=== PATIENT | male | born 1980 | race Caucasian/White ===

== ENCOUNTER 2020-02-22 09:07 | Inpatient (IN) | payer OTHER ==
[~2020-02-22] VITALS: Ht 177.8 cm; Wt 97.5 kg
[2020-02-22 09:21] VITALS: Ht 177.8 cm; Wt 97.5 kg
[2020-02-22 10:06] LABS: CALCIUM 9.3 mg/dL (8.5-10.1); CARBON DIOXIDE 26.9 mmol/L (21-32); CREATININE SERUM 1.4 mg/dL (0.7-1.3); POTASSIUM SERUM 4.1 mmol/L (3.5-5.1)
[2020-02-22 10:11] LABS: ALBUMIN 4.5 g/dL (3.4-5.0); BILIRUBIN TOTAL 0.7 mg/dL (0.20-1.00); TOTAL PROTEIN, SERUM 7.9 g/dL (6.4-8.2)
[2020-02-22 10:19] LABS: PLATELET COUNT 257 x10^3mcL (130-400); RED CELL DISTRIBUTION WIDTH 12.9 % (11.5-14.5)
[2020-02-22 10:22] LABS: BASOPHIL % 0 % (0-2)
[2020-02-22 12:02] LABS: microscopic required? YES; urine erythrocyte 1+ (NEGATIVE)
[2020-02-22 16:23] VITALS: BP 139/96
[2020-02-22 17:17] LABS: MAGNESIUM 1.8 mg/dL (1.8-2.4); PHOSPHOROUS 2.4 mg/dL (2.5-4.9)
[2020-02-22 17:18] LABS: CHOLESTEROL/HDL RATIO 5.5
[2020-02-22 17:23] LABS: T3 TOTAL 1.25 ng/mL
[2020-02-22 17:27] LABS: FREE T4 0.96 ng/dL (0.76-1.46); FREE THYROXINE INDEX 2.5 ug/dL (1.4-4.5); T4(THYROXINE) 7.4 ug/dL (4.7-13.3)
[2020-02-22 19:58] VITALS: BP 134/81
[2020-02-23 02:09] LABS: AMPHETAMINE QUAL UR NONE DETECTED (See below)
[2020-02-23 05:39] VITALS: BP 134/85
[2020-02-23 07:09] LABS: BASOPHIL % 0.4 % (0-2); PLATELET COUNT 208 x10^3mcL (130-400); RED CELL DISTRIBUTION WIDTH 12.9 % (11.5-14.5)
[2020-02-23 07:35] LABS: CALCIUM 8.3 mg/dL (8.5-10.1); CARBON DIOXIDE 26.9 mmol/L (21-32); CHLORIDE SERUM 107 mmol/L (98-107); GFR1 > 60 mL/min; GLUCOSE SERUM 111 mg/dL (74-106); MAGNESIUM 1.9 mg/dL (1.8-2.4); PHOSPHOROUS 2.7 mg/dL (2.5-4.9); POTASSIUM SERUM 3.6 mmol/L (3.5-5.1); SODIUM SERUM 141 mmol/L (136-145)
[2020-02-23 10:00] VITALS: BP 147/97
[2020-02-23 13:04] VITALS: BP 124/83
[2020-02-23] MEDS ORDERED: FLO4 PO (14:00)
[2020-02-23] MEDS ORDERED: TOR15I IV (14:00)
[2020-02-23 15:05] VITALS: BP 124/83
== END 2020-02-23 16:25 | disposition home or self-care (01) | DRG 659 ==
LOC: ED 09:07 → MU 14:32
PROVIDERS: Emergency Medicine; Urology; ADMIT Student in an Organized Health Care Education/Training Program; ATTEND Student in an Organized Health Care Education/Training Program
PROC: BT1F1ZZ Fluoroscopy of Left Kidney, Ureter and Bladder using Low Osmolar Contrast (ICD-10-PCS; 2020-02-23)
PROC: 0T778DZ Dilation of Left Ureter with Intraluminal Device, Via Natural or Artificial Opening Endoscopic (ICD-10-PCS; principal; 2020-02-23 07:30)
DX: N20.1 Calculus of ureter (principal); N17.0 Acute kidney failure with tubular necrosis; N13.1 Hydronephrosis with ureteral stricture, not elsewhere classified; R65.10 Systemic inflammatory response syndrome (SIRS) of non-infectious origin without acute organ dysfunction; I10 Essential (primary) hypertension; N20.9 Urinary calculus, unspecified; N13.9 Obstructive and reflux uropathy, unspecified; E83.39 Other disorders of phosphorus metabolism; R73.03 Prediabetes; F41.9 Anxiety disorder, unspecified; D72.829 Elevated white blood cell count, unspecified; Z88.0 Allergy status to penicillin; Z79.899 Other long term (current) drug therapy
CPT/HCPCS: 82962; 83880; 84439; C2625; G0378; J0696; J1885; J2250; J2270; J2405; J3010; J7030; Q9967

== ENCOUNTER 2020-02-27 02:42 | Inpatient (IN) | payer OTHER ==
[~2020-02-27] VITALS: Ht 177.8 cm; Wt 97.5 kg
[~2020-02-27 02:42] MED LIST: FLO4 PO; TOR15I IV
[2020-02-27 03:58] LABS: BASOPHIL % 0.3 % (0-2); PLATELET COUNT 248 x10^3mcL (130-400); RED CELL DISTRIBUTION WIDTH 12.9 % (11.5-14.5)
[2020-02-27 04:05] LABS: CALCIUM 8.8 mg/dL (8.5-10.1); CARBON DIOXIDE 28.9 mmol/L (21-32); CHLORIDE SERUM 104 mmol/L (98-107); CREATININE SERUM 1.2 mg/dL (0.7-1.3); GFR1 > 60 mL/min; GLUCOSE SERUM 146 mg/dL (74-106); POTASSIUM SERUM 4.5 mmol/L (3.5-5.1); SODIUM SERUM 140 mmol/L (136-145)
[2020-02-27 04:09] LABS: ALBUMIN 3.8 g/dL (3.4-5.0); ALKALINE PHOSPHATASE 72 U/L (46-116); ALT/SGPT 44 U/L (16-63); AST/SGOT 16 U/L (15-37); LIPASE 76 IU/L (73-393); TOTAL PROTEIN, SERUM 7.5 g/dL (6.4-8.2)
[2020-02-27 05:43] VITALS: Ht 177.8 cm; Wt 97.5 kg
[2020-02-27 05:47] VITALS: BP 131/93
[2020-02-27 05:53] LABS: UA SPECIFIC GRAVITY >=1.030 (1.005-1.035); microscopic required? YES; urine erythrocyte 3+ (NEGATIVE)
[2020-02-27] MEDS ORDERED: ESCITALOPRAM OX10 MG PO (06:34)
[2020-02-27 08:22] VITALS: BP 136/77
[2020-02-27 13:00] VITALS: BP 124/74
[2020-02-27 16:54] VITALS: BP 133/86
[2020-02-27 21:26] VITALS: BP 118/72
[2020-02-28 06:07] VITALS: BP 123/78
[2020-02-28 06:28] LABS: CALCIUM 8.3 mg/dL (8.5-10.1); CARBON DIOXIDE 27.5 mmol/L (21-32); CHLORIDE SERUM 107 mmol/L (98-107); GFR1 > 60 mL/min; GLUCOSE SERUM 103 mg/dL (74-106); MAGNESIUM 2.1 mg/dL (1.8-2.4); PHOSPHOROUS 3.1 mg/dL (2.5-4.9); POTASSIUM SERUM 4.5 mmol/L (3.5-5.1); SODIUM SERUM 140 mmol/L (136-145)
[2020-02-28 06:35] LABS: BASOPHIL % 0.3 % (0-2); PLATELET COUNT 214 x10^3mcL (130-400); RED CELL DISTRIBUTION WIDTH 13.4 % (11.5-14.5)
[2020-02-28 17:36] VITALS: BP 136/75
[2020-02-28 20:19] VITALS: BP 122/80
[2020-02-29 05:00] VITALS: BP 130/87
[2020-02-29 07:38] LABS: BASOPHIL % 0.3 % (0-2); PLATELET COUNT 216 x10^3mcL (130-400); RED CELL DISTRIBUTION WIDTH 12.6 % (11.5-14.5)
[2020-02-29 07:55] LABS: CALCIUM 8.5 mg/dL (8.5-10.1); CARBON DIOXIDE 28.2 mmol/L (21-32); CHLORIDE SERUM 107 mmol/L (98-107); CREATININE SERUM 0.9 mg/dL (0.7-1.3); GFR1 > 60 mL/min; GLUCOSE SERUM 95 mg/dL (74-106); POTASSIUM SERUM 3.8 mmol/L (3.5-5.1); SODIUM SERUM 141 mmol/L (136-145)
[2020-02-29 08:22] VITALS: BP 129/91
[2020-02-29] MEDS ORDERED: CIPRO500 MG PO (09:38)
[2020-02-29] MEDS ORDERED: MOT600 PO (09:39)
[2020-02-29 09:47] VITALS: BP 129/91
== END 2020-02-29 10:47 | disposition home or self-care (01) | DRG 660 ==
LOC: ED 02:42 → MU 04:20
PROVIDERS: Emergency Medicine; Urology; ADMIT Internal Medicine; ATTEND Internal Medicine
PROC: BT1F1ZZ Fluoroscopy of Left Kidney, Ureter and Bladder using Low Osmolar Contrast (ICD-10-PCS; 2020-02-28)
PROC: 0T778DZ Dilation of Left Ureter with Intraluminal Device, Via Natural or Artificial Opening Endoscopic (ICD-10-PCS; principal; 2020-02-28 07:30)
DX: N13.6 Pyonephrosis (principal); N20.2 Calculus of kidney with calculus of ureter; F41.9 Anxiety disorder, unspecified; J45.909 Unspecified asthma, uncomplicated; Z20.828 Contact with and (suspected) exposure to other viral communicable diseases; Z88.0 Allergy status to penicillin
CPT/HCPCS: 76001; 82962; C1769; C2625; G0378; J0696; J1200; J1885; J2175; J2405; J3010; J7030; Q9967